=== PATIENT | male | born 1980 | race African-American/Black ===

== ENCOUNTER 2022-08-16 08:55 | Emergency (ER) | payer MEDICAID ==
[~2022-08-16] VITALS: Ht 198.1 cm; Wt 111.4 kg
[2022-08-16 11:08] VITALS: BP 178/100
[2022-08-16] MEDS ORDERED: HYDROCODONE/ACETAMINOPHEN 5-325 MG TABLET PO ONE (11:45)
[2022-08-16] MEDS ORDERED: LIDOCAINE 5% TRANSDERMAL PATCH TD ONE (11:45)
[2022-08-16] MEDS ORDERED: IBUPROFEN 600 MG TABLET PO ONE (11:45)
== END 2022-08-16 15:53 | disposition home or self-care (01) ==
LOC: EMS 09:14 → EDBD 09:14 → EMS 15:53
DX: S20.211A Contusion of right front wall of thorax, initial encounter (principal); I10 Essential (primary) hypertension; F17.210 Nicotine dependence, cigarettes, uncomplicated; V09.9XXA Pedestrian injured in unspecified transport accident, initial encounter; Y93.89 Activity, other specified; Y92.481 Parking lot as the place of occurrence of the external cause; Y99.8 Other external cause status
CPT/HCPCS: 99284; 71046; G0238